=== PATIENT | male | born 1975 | race Caucasian/White ===

== ENCOUNTER 2019-02-16 20:36 | Observation (INO) | payer BC ==
[2019-02-16 21:48] LABS: Absolute Lymphocytes (CBC) 1.1 K/uL (0.7-4.9); Absolute Monocytes 0.8 K/uL (0.1-1.3); Absolute Neutrophil 6.5 K/uL (1.8-8.0); Basophils % 0.2 % (0-1.3); Eosinophils % 0.2 % (0-4.4); Hematocrit 52.1 % (39.6-49.0); Lymphocytes % 13.4 % (15.3-44.8); MPV 7.8 fL (7.6-11.3); Monocytes % 9.9 % (3.3-12.3); RBC Red Blood Cell Count 5.11 M/uL (4.33-5.43)
[2019-02-16] MEDS ORDERED: NA CHLORIDE 0.9% 1,000 ML ONE ×2 (21:52→22:30)
[2019-02-16 22:00] LABS: Protime INR 1.09
[2019-02-16 22:05] LABS: Albumin 4.2 g/dL (3.4-5.0); Bilirubin Direct 0.3 mg/dL (0-0.2); Bilirubin Total 1.8 mg/dL (0.2-1.0); Potassium 3.9 mmol/L (3.5-5.1); Protein, Total 8.4 g/dL (6.4-8.2)
[2019-02-16] MEDS ORDERED: LORazepam 2 MG/ML VIAL ONE (22:08)
[2019-02-16 22:19] LABS: Barbiturates NEGATIVE (NEGATIVE); Benzodiazepines NEGATIVE (NEGATIVE); Cocaine POSITIVE (NEGATIVE); METHAMPHETAM NEGATIVE (NEGATIVE); Methadone NEGATIVE (NEGATIVE); Opiates NEGATIVE (NEGATIVE); Phencyclidine NEGATIVE (NEGATIVE); THC Cannibis POSITIVE (NEGATIVE)
[2019-02-16 22:21] LABS: Urine Blood NEGATIVE (NEG); Urine Glucose NEGATIVE (NEG); Urine Protein 1+ (NEG); Urine Specific Gravity 1.025 (1.005-1.030); Urine pH 5.5 (5.0-7.0)
--- NOTE | 2019-02-16 22:48 | EDPHYS ---
Physician Documentation [facility] Name: Andrew Soriano Age: 44 yrs Sex: Male : 1975 Arrival Date: 02/16/2019 Time: 20:37 Bed 14 Private MD: Joey Bishop ED Physician Enrike Russell HPI: 02/16 21:45 This 44 yrs old Male presents to ER via Ambulatory with complaints of Alcohol rn Withdrawal, hallucinations. 21:45 The patient presents with confusion, disorientation, hallucinations. Onset: The rn symptoms/episode began/occurred yesterday. Possible causes: drug use, alcohol. Current symptoms: In the emergency department the patient's symptoms are unchanged from the initial presentation. The patient has not experienced similar symptoms in the past. Reports heavy drinker, 1/2 to 1 gallon of vodka a day, reports used what he thought was cocaine 1-2 days ago, also stopped drinking yesterday, noticed auditory and visual hallucinations today, no seizure, + shaky, + high blood pressure. . Historical: - Allergies: 20:55 No Known Allergies; ak1 - Home Meds: 20:55 trazodone 50 mg Oral tab [Active]; Keppra 500 mg Oral tab 1.5 tabs [Active]; zolpidem ak1 10 mg Oral tab 1 tab once daily [Active]; losartan 100 mg oral tab 1 tab once daily [Active]; amlodipine 10 mg tab 1 tab once daily [Active]; - PSHx: 20:55 ARM SX; ak1 - Immunization history:: Adult Immunizations unknown. - Social history:: Smoking status: Patient/guardian denies using tobacco, Patient uses alcohol, patient/guardian reports chronic longstanding heavy alcohol consumption. - Ebola Screening: : No symptoms or risks identified at this time. - Family history:: not pertinent. - Hospitalizations: : No recent hospitalization is reported. ROS: 21:45 Constitutional: Negative for fever, chills, and weight loss, Eyes: Negative for injury, rn pain, redness, and discharge, Neck: Negative for injury, pain, and swelling, Cardiovascular: Negative for chest pain, and edema, Respiratory: Negative for shortness of breath, cough, wheezing, and pleuritic chest pain, Abdomen/GI: + nausea MS/Extremity: Negative for injury and deformity, Skin: Negative for injury, rash, and discoloration, Neuro: Negative for headache, weakness, numbness, tingling, and seizure. Exam: 21:45 Constitutional: This is a well developed, well nourished patient who is awake, alert, rn and in no acute distress. Head/Face: Normocephalic, atraumatic. Eyes: Pupils equal round and reactive to light, extra-ocular motions intact. Lids and lashes normal. Conjunctiva and sclera are non-icteric and not injected. Cornea within normal limits. Periorbital areas with no swelling, redness, or edema. ENT: dry MM Cardiovascular: tachycardic, regular, no murmur Respiratory: Lungs have equal breath sounds bilaterally, clear to auscultation. No increased work of breathing, no retractions or nasal flaring. Abdomen/GI: soft, non-tender MS/ Extremity: Pulses equal, no cyanosis. Neurovascular intact. Full, normal range of motion. Equal circumference. Neuro: Awake and alert, GCS 15, oriented to person, place, time, and situation. Cranial nerves II-XII grossly intact. Motor strength 5/5 in all extremities. Sensory grossly intact. + extremity tremors. Vital Signs: 20:52 BP 146 / 102; Pulse 120; Resp 18; Temp 98.5; Pulse Ox 97% on R/A; Weight 108.86 kg (R); ak1 Height 5 ft. 11 in. (180.34 cm) (R); Pain 0/10; 22:07 BP 132 / 101; Pulse 102; Resp 21; Pulse Ox 98% on R/A; tl2 23:36 BP 108 / 76; Pulse 79; Resp 21; Pulse Ox 98% on R/A; tl2 02/17 00:54 BP 151 / 93; Pulse 114; Resp 22; Pulse Ox 97% on R/A; tl2 02/16 20:52 Body Mass Index 33.47 (108.86 kg, 180.34 cm) ak1 MDM: 02/16 21:05 Patient medically screened. rn 22:46 Differential Diagnosis: electrolyte abnormality, volume depletion, delirium tremens. rn Data reviewed: vital signs, nurses notes, lab test result(s), and as a result, I will admit patient. Counseling: I had a detailed discussion with the patient and/or guardian regarding: the historical points, exam findings, and any diagnostic results supporting the discharge/admit diagnosis, lab results, radiology results, the need for further work-up and treatment in the hospital. Admission orders: after a detailed discussion of the patient's condition and case, the admit orders are written by me. Special discussion:. ED course: Pt with slight improvement, still abnormal vitals, admitted to Dr. Mittal.. 02/16 21:13 Order name: CBC with Diff; Complete Time: 21:52 rn 02/16 21:13 Order name: Basic Metabolic Panel; Complete Time: 22:39 rn 02/16 21:13 Order name: ETOH Level; Complete Time: 22:39 02/16 21:13 Order name: Hepatic Function; Complete Time: 22:39 02/16 21:13 Order name: PT-INR; Complete Time: 22:39 02/16 21:13 Order name: Ptt, Activated; Complete Time: 22:39 02/16 21:13 Order name: Urine Drug Screen; Complete Time: 22:39 02/16 22:12 Order name: Urine Dipstick--Ancillary (enter results); Complete Time: 22:39 ar5 02/16 23:09 Order name: CBC with Automated Diff EDLA 02/16 23:09 Order name: CBC with Automated Diff EDLA 02/16 23:09 Order name: Comprehensive Metabolic Panel EDLA 02/16 23:09 Order name: Comprehensive Metabolic Panel [facility] 02/16 21:13 Order name: IV Start; Complete Time: 21:20 02/16 21:13 Order name: EKG; Complete Time: 21:15 02/16 21:13 Order name: EKG - Nurse/Tech; Complete Time: 21:20 rn 02/16 21:13 Order name: Labs collected and sent; Complete Time: 21:20 rn 02/16 21:13 Order name: Urine Dipstick-Ancillary (obtain specimen); Complete Time: 21:20 02/16 23:09 Order name: CONS Pharmacy Consult [facility] 02/16 23:09 Order name: Regular EDMS Administered Medications: 21:51 Drug: NS 0.9% 1000 ml Route: IV; Rate: 1000 ml; Site: right antecubital; tl2 22:33 Follow up: IV Status: Completed infusion; IV Intake: 1000ml tl2 22:05 Not Given (unavailable): Valium 10 mg IVP once tl2 22:06 Drug: Ativan 2 mg Route: IVP; Site: right antecubital; tl2 23:00 Follow up: Response: No adverse reaction; No change in condition tl2 22:33 Drug: NS 0.9% 1000 ml Route: IV; Rate: 1000 ml; Site: right antecubital; tl2 02/17 00:00 Follow up: IV Status: Completed infusion; IV Intake: 1000ml tl2 02/16 23:12 Drug: Ativan 2 mg Route: IVP; Site: right antecubital; tl2 02/17 00:00 Follow up: Response: No adverse reaction tl2 Disposition: 02/16/19 22:48 Hospitalization ordered by Chris Mittal for Inpatient Admission. Preliminary diagnosis is Alcohol dependence with withdrawal delirium. - Bed requested for Telemetry/MedSurg (Inpatient). - Status is Inpatient Admission. tl2 - Condition is Stable. - Problem is new. - Symptoms have improved. UTI on Admission? No Signatures: Dispatcher [employer] EDEnrike Kidd MD MD rn Krenek, Amber, RN RN ak1 Franchesca Nair RN RN cg Jihan Luque RN RN tl2 Corrections: (The following items were deleted from the chart) 02/16 23:50 22:48 Hospitalization Ordered by Chris Mittal MD for Inpatient Admission. Preliminary cg diagnosis is Alcohol dependence with withdrawal delirium. Bed requested for Telemetry/MedSurg (Inpatient). Status is Inpatient Admission. Condition is Stable. Problem is new. Symptoms have improved. UTI on Admission? No. rn 02/17 01:17 02/16 23:50 02/16/2019 22:48 Hospitalization Ordered by Chris Mittal MD for Inpatient tl2 Admission. Preliminary diagnosis is Alcohol dependence with withdrawal delirium. Bed requested for Telemetry/MedSurg (Inpatient). Status is Inpatient Admission. Condition is Stable. Problem is new. Symptoms have improved. UTI on Admission? No. cg
--- NOTE | 2019-02-16 22:48 | ER ---
Nurse's Notes [facility] Name: Andrew Soriano Age: 44 yrs Sex: Male : 1975 Arrival Date: 02/16/2019 Time: 20:37 Bed 14 Private MD: Joey Bishop Diagnosis: Alcohol dependence with withdrawal delirium Presentation: 02/16 20:52 Presenting complaint: Patient states: usually drinks 3 to 4 bottles of vodka weekly, ak1 with recent cocaine use for 3 weeks [employer]OUTE [employer]IE[employer]. pt stated last drink was 2 days [employer]OUTE [employer]. pt c/o visual and audio hallucinations starting at 0500 today. Transition of care: patient was not received from another setting of care. Onset of symptoms was February 16, 2019. Risk Assessment: Do you want to hurt yourself or someone else? Patient reports no desire to harm self or others. Care prior to arrival: None. 20:52 Method Of Arrival: Ambulatory ak1 20:52 Acuity: ELYSSA 2 ak1 22:45 Initial Sepsis Screen: Does the patient meet any 2 criteria? HR > 90 bpm. No. Patient's tl2 initial sepsis screen is negative. Does the patient have a suspected source of infection? No. Patient's initial sepsis screen is negative. Historical: - Allergies: 20:55 No Known Allergies; ak1 - Home Meds: 20:55 trazodone 50 mg Oral tab [Active]; Keppra 500 mg Oral tab 1.5 tabs [Active]; zolpidem ak1 10 mg Oral tab 1 tab once daily [Active]; losartan 100 mg oral tab 1 tab once daily [Active]; amlodipine 10 mg tab 1 tab once daily [Active]; - PSHx: 20:55 ARM SX; ak1 - Immunization history:: Adult Immunizations unknown. - Social history:: Smoking status: Patient/guardian denies using tobacco, Patient uses alcohol, patient/guardian reports chronic longstanding heavy alcohol consumption. - Ebola Screening: : No symptoms or risks identified at this time. - Family history:: not pertinent. - Hospitalizations: : No recent hospitalization is reported. Screenin:44 Abuse screen: Denies threats or abuse. Nutritional screening: No deficits noted. tl2 Tuberculosis screening: No symptoms or risk factors identified. Fall Risk IV access (20 points). Assessment: 21:00 General: Appears in no apparent distress. uncomfortable, Behavior is cooperative, tl2 appropriate for age, anxious. Pain: Denies pain. Neuro: Level of Consciousness is awake, alert, obeys commands, Oriented to person, place, time, situation, Reports auditory and visual hallucinations earlier in the day. No hallucinations reported at this time. Cardiovascular: Denies chest pain. Respiratory: Airway is patent Respiratory effort is even, unlabored, Respiratory pattern is regular, symmetrical. GI: No signs and/or symptoms were reported involving the gastrointestinal system. : No signs and/or symptoms were reported regarding the genitourinary system. Derm: Skin is pink, warm \T\ dry. 22:09 Reassessment: Patient appears in no apparent distress at this time. No changes from tl2 previously documented assessment. Patient and/or family updated on plan of care and expected duration. Pain level reassessed. Patient is alert, oriented x 3, equal unlabored respirations, skin warm/dry/pink. 22:44 Reassessment: pt continues to repeat story. Pt is AOx4 and answers questions tl2 appropriately. 02/17 00:00 Reassessment: Patient appears in no apparent distress at this time. Patient and/or tl2 family updated on plan of care and expected duration. Pain level reassessed. Patient is alert, oriented x 3, equal unlabored respirations, skin warm/dry/pink. 01:14 Reassessment: Patient appears in no apparent distress at this time. Patient and/or tl2 family updated on plan of care and expected duration. Pain level reassessed. Patient is alert, oriented x 3, equal unlabored respirations, skin warm/dry/pink. pt stable and ready for transport to floor. Vital Signs: 02/16 20:52 BP 146 / 102; Pulse 120; Resp 18; Temp 98.5; Pulse Ox 97% on R/A; Weight 108.86 kg (R); ak1 Height 5 ft. 11 in. (180.34 cm) (R); Pain 0/10; 22:07 BP 132 / 101; Pulse 102; Resp 21; Pulse Ox 98% on R/A; tl2 23:36 BP 108 / 76; Pulse 79; Resp 21; Pulse Ox 98% on R/A; tl2 02/17 00:54 BP 151 / 93; Pulse 114; Resp 22; Pulse Ox 97% on R/A; tl2 02/16 20:52 Body Mass Index 33.47 (108.86 kg, 180.34 cm) ak1 ED Course: 02/16 20:37 Patient arrived in ED. am2 20:39 Joey Bishop DO is Private Physician. am2 20:53 Triage completed. ak1 20:55 Arm band placed on Patient placed in an exam room, on a stretcher, on pulse oximetry, ak1 Patient notified of wait time. 21:05 Enrike Russell MD is Attending Physician. rn 21:08 Jihan Luque RN is Primary Nurse. tl2 21:20 Inserted saline lock: 20 gauge in right antecubital area, using aseptic technique. tl2 Blood collected. 22:44 No provider procedures requiring assistance completed. tl2 22:45 Patient has correct armband on for positive identification. Bed in low position. Call tl2 light in reach. Side rails up X 1. Adult w/ patient. 22:47 Chris Mittal MD is Hospitalizing Provider. rn 02/17 01:14 Patient admitted, IV remains in place. tl2 Administered Medications: 02/16 21:51 Drug: NS 0.9% 1000 ml Route: IV; Rate: 1000 ml; Site: right antecubital; tl2 22:33 Follow up: IV Status: Completed infusion; IV Intake: 1000ml tl2 22:05 Not Given (unavailable): Valium 10 mg IVP once tl2 22:06 Drug: Ativan 2 mg Route: IVP; Site: right antecubital; tl2 23:00 Follow up: Response: No adverse reaction; No change in condition tl2 22:33 Drug: NS 0.9% 1000 ml Route: IV; Rate: 1000 ml; Site: right antecubital; tl2 02/17 00:00 Follow up: IV Status: Completed infusion; IV Intake: 1000ml tl2 02/16 23:12 Drug: Ativan 2 mg Route: IVP; Site: right antecubital; tl2 02/17 00:00 Follow up: Response: No adverse reaction tl2 Intake: 02/16 22:33 IV: 1000ml; Total: 1000ml. tl2 02/17 00:00 IV: 1000ml; Total: 2000ml. tl2 Outcome: 02/16 22:48 Decision to Hospitalize by Provider. rn 02/17 01:14 Admitted to Tele accompanied by tech, family with patient, via wheelchair, room 206, tl2 with chart. Condition: stable Discharge instructions given to patient, Instructed on the need for admit. 01:17 Patient left the ED. tl2 Signatures: Enrike Russell MD MD rn Krenek, Amber, RN RN ak1 Jihan Luque RN RN tl2 Isha Becerril
[2019-02-16] MEDS ORDERED: MORPHINE 2 MG/ML SYR IV PRN (22:59)
[2019-02-16] MEDS ORDERED: ACETAMINOPHEN 500 MG TAB PO PRN (22:59)
[2019-02-16] MEDS ORDERED: ONDANSETRON 4 MG/2 ML VIAL IV PRN (22:59)
[2019-02-16] MEDS ORDERED: METOPROLOL TAR 25 MG TAB PO ONE (23:30)
[2019-02-17] MEDS: chlordiazePOXIDE HCl 5 MG CAP PO SCH ×2 (01:38→05:10)
[2019-02-17] MEDS: NA CHLORIDE 0.9% 1,000 ML IV SCH ×4 (01:41→20:42)
[2019-02-17 02:06] VITALS: BMI 33.5
[2019-02-17] MEDS: LORazepam 2 MG/ML VIAL IV PRN ×2 (03:51→08:00)
[2019-02-17] MEDS ORDERED: TRAZODONE 50 MG TABLET PO PRN (04:57)
[2019-02-17 05:40] LABS: Absolute Lymphocytes (CBC) 1.1 K/uL (0.7-4.9); Absolute Monocytes 0.7 K/uL (0.1-1.3); Basophils % 0.6 % (0-1.3); Eosinophils % 0.4 % (0-4.4); Hematocrit 43.1 % (39.6-49.0); Lymphocytes % 16.6 % (15.3-44.8); MPV 8.1 fL (7.6-11.3); Monocytes % 9.7 % (3.3-12.3); RBC Red Blood Cell Count 4.27 M/uL (4.33-5.43)
[2019-02-17 06:00] LABS: Albumin 3.3 g/dL (3.4-5.0); Bilirubin Total 1.5 mg/dL (0.2-1.0); Potassium 3.8 mmol/L (3.5-5.1); Protein, Total 6.5 g/dL (6.4-8.2)
[2019-02-17] MEDS ORDERED: METOPROLOL TAR 25 MG TAB PO SCH (06:00)
[2019-02-17] MEDS ORDERED: ZOLPIDEM TARTRATE 10 MG TABLET PO PRN (07:52)
--- NOTE | 2019-02-17 08:18 | P.HP ---
Certification for Inpatient Patient admitted to: Inpatient With expected LOS: >2 Midnights Patient will require the following post-hospital care: None Practitioner: I am a practitioner with admitting privileges, knowledge of patient current condition, hospital course, and medical plan of care. Services: Services provided to patient in accordance with Admission requirements found in Title 42 Section 412.3 of the Code of Federal Regulations Patient History Date of Service: 02/17/19 Reason for admission: Patient with hallucinations and recent cocaine use History of Present Illness: Patient is a 44-year-old gentleman who came into the hospital having hallucinations. He has stopped drinking over the last 24 hr. The hallucinations started about 9-10 hours after his last drink. He drinks a large amount of vodka. Approximately 1 gal is what we were told in the emergency room; however, he states he drinks about 4 glasses. 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 Shortly after this is when he started having the hallucinations. Hemodynamically, he was tachycardic but currently he is stable. He continues with hallucinations but otherwise he is not combative and he appears very respectful. His brother is at bedside with him assisting with his care. If he is feeling better in the mornings and possible discharge home. Will put him on Librium along with Ativan IV as needed. Also will order banana bag for him. He does have a history of seizures and we restarted his antiepileptics. Going through DTs increases her risk of seizures and so will need to monitor him very closely for this. Alcohol is self decrease his seizure threshold; however, apparently the medications have assisted with providing the seizures from occurring. If unable to take by mouth and will need to give him intravenous medications. Allergies No Known Allergies Allergy (Unverified 02/17/19 01:15) Home Medications: Amlodipine Besylate 1 tab PO DAILY 02/17/19 Lansoprazole 1 tab PO DAILY 02/17/19 Losartan Potassium 1 tab PO DAILY 02/17/19 Trazodone [Desyrel*] 1 tab PO BEDTIME 02/17/19 Zolpidem Tartrate [Ambien*] 1 tab PO BEDTIME PRN 02/17/19 levETIRAcetam [Levetiracetam] 1.5 tab PO DAILY 02/17/19 - Past Medical/Surgical History Has patient received pneumonia vaccine in the past: No Diabetic: No -: HTN -: seizure -unaware what type but loss of consciousness -: arm surgery - Family History Father Family History: Reviewed- Non-Contributory - Social History Smoking Status: Never smoker Alcohol use: Yes CD- Drugs: Yes Caffeine use: No Place of Residence: Home Review of Systems 10-point ROS is otherwise unremarkable Physical Examination - Vital Signs Temperature: 98.0 F Blood Pressure: 118/66 Pulse: 70 Respirations: 20 Pulse Ox (%): 98 - Physical Exam General: Alert, In no apparent distress, Oriented x3 HEENT: Atraumatic, PERRLA, Mucous membr. moist/pink, EOMI, Sclerae nonicteric Neck: Supple, 2+ carotid pulse no bruit, No LAD, Without JVD or thyroid abnormality Respiratory: Clear to auscultation bilaterally, Normal air movement Cardiovascular: Regular rate/rhythm, Normal S1 S2, No murmurs Gastrointestinal: Normal bowel sounds, Soft and benign, Non-distended, No tenderness Musculoskeletal: No clubbing, No swelling, No tenderness Integumentary: No rashes Neurological: Normal gait, Normal speech, Normal strength at 5/5 x4 extr, Normal tone, Sensation intact, Cranial nerves 3-12 intact, Normal affect Lymphatics: No axilla or inguinal lymphadenopathy - Studies Laboratory Data (last 24 hrs) 02/16/19 21:34: PT 12.8 H, INR 1.09, APTT 31.9 02/16/19 21:34: Sodium 138, Potassium 3.9, BUN 20 H, Creatinine 1.61 H, Glucose 101, Total Bilirubin 1.8 H, AST 34, ALT 40, Alkaline Phosphatase 95 02/16/19 21:34: WBC 8.6, Hgb 18.0 H, Hct 52.1 H, Plt Count 241 Assessment & Plan - Problems (Diagnosis) (1) Delirium tremens Current Visit: Yes Status: Acute (2) Cocaine abuse Current Visit: Yes Status: Acute (3) Alcohol abuse Current Visit: Yes Status: Acute (4) Hallucinations Current Visit: Yes Status: Acute (5) History of seizure disorder Current Visit: Yes Status: Acute - Plan Plan: 1. IV hydration 2. Banana bag daily 3. Librium scheduled, and Ativan as needed 4. monitor hemodynamics closely 5. continue antiepileptics 6. seizure precautions 7. counseled regarding refraining from alcohol and cocaine use 8. GI and DVT prophylaxis Discharge Plan: Home Plan to discharge in: Greater than 2 days - Advance Directives Does patient have a Living Will: No Does patient have a Durable POA for Healthcare: No - Code Status/Comfort Care Code Status Assessed: Yes Code Status: Full Code Critical Care: No Time Spent Managing PTS Care (In Minutes): 40
[2019-02-17] MEDS ORDERED: FOLIC ACID 1 MG, MULTIVITAMINS INJ 10 ML, THIAMINE HCL 100 MG in NA CHLORIDE 0.9% 1,000 ML IV SCH (09:00)
[2019-02-17] MEDS ORDERED: LORazepam 2 MG/ML VIAL IV PRN (09:10)
[2019-02-17] MEDS: chlordiazePOXIDE HCl 25 MG CAP PO SCH ×4 (09:42→20:42)
[2019-02-17] MEDS: levETIRAcetam 500 MG TAB PO SCH (09:42)
[2019-02-17] MEDS: LOSARTAN POTASSIUM 50 MG TABLET PO SCH (09:42)
[2019-02-17] MEDS: AMLODIPINE 10 MG TAB PO SCH (09:43)
--- NOTE | 2019-02-17 12:09 | EKG ---
Test Date: 2019-02-16 Test Time: 21:03:56 Data Warehouse Specialist: NORIS MEASUREMENT RESULTS: Intervals: Rate: 92 FL: 150 QRSD: 86 QT: 340 QTc: 420 [place]: P: 46 FL: 150 QRS: 5 T: 73 INTERPRETIVE STATEMENTS: Normal sinus rhythm with sinus arrhythmia Possible Left atrial enlargement Borderline ECG Compared to ECG 10/19/2009 10:52:30 Left ventricular hypertrophy no longer present T-wave abnormality no longer present Electronically Signed On 02-17-19 12:08:10 CDT by Abdon Florence
[2019-02-17] MEDS ORDERED: TRAZODONE 50 MG TABLET PO SCH (21:00)
[2019-02-18] MEDS: chlordiazePOXIDE HCl 25 MG CAP PO SCH ×4 (01:23→09:24)
[2019-02-18 04:44] VITALS: O2SAT 100
[2019-02-18] MEDS: NA CHLORIDE 0.9% 1,000 ML IV SCH (05:48)
[2019-02-18 06:24] LABS: Absolute Lymphocytes (CBC) 1.2 K/uL (0.7-4.9); Absolute Monocytes 0.5 K/uL (0.1-1.3); Basophils % 0.7 % (0-1.3); Eosinophils % 1.5 % (0-4.4); Hematocrit 43.1 % (39.6-49.0); Lymphocytes % 25.8 % (15.3-44.8); MPV 8.2 fL (7.6-11.3); Monocytes % 9.9 % (3.3-12.3); RBC Red Blood Cell Count 4.26 M/uL (4.33-5.43)
[2019-02-18 06:27] LABS: Albumin 3.1 g/dL (3.4-5.0); Bilirubin Total 0.7 mg/dL (0.2-1.0); Potassium 4.6 mmol/L (3.5-5.1); Protein, Total 6.3 g/dL (6.4-8.2)
[2019-02-18 09:18] VITALS: BP 114/70; TEMP 97.2
[2019-02-18] MEDS: AMLODIPINE 10 MG TAB PO SCH (09:25)
[2019-02-18] MEDS: LOSARTAN POTASSIUM 50 MG TABLET PO SCH (09:25)
[2019-02-18] MEDS: levETIRAcetam 500 MG TAB PO SCH (09:27)
--- NOTE | 2019-02-18 10:54 | P.SSS ---
Patient History Date of Service: 02/18/19 Reason for admission: Patient with hallucinations and recent cocaine use History of Present Illness: Patient is a 44-year-old gentleman who came into the hospital having hallucinations. He has stopped drinking over the last 24 hr. The hallucinations started about 9-10 hours after his last drink. He drinks a large amount of vodka. Approximately 1 gal is what we were told in the emergency room; however, he states he drinks about 4 glasses. 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 Shortly after this is when he started having the hallucinations. Hemodynamically, he was tachycardic but currently he is stable. He continues with hallucinations but otherwise he is not combative and he appears very respectful. His brother is at bedside with him assisting with his care. If he is feeling better in the mornings and possible discharge home. Will put him on Librium along with Ativan IV as needed. Also will order banana bag for him. He does have a history of seizures and we restarted his antiepileptics. Going through DTs increases her risk of seizures and so will need to monitor him very closely for this. Alcohol is self decrease his seizure threshold; however, apparently the medications have assisted with providing the seizures from occurring. If unable to take by mouth and will need to give him intravenous medications. Allergies No Known Allergies Allergy (Unverified 02/17/19 01:15) Home Medications: Amlodipine Besylate 1 tab PO DAILY 02/17/19 Lansoprazole 1 tab PO DAILY 02/17/19 Losartan Potassium 1 tab PO DAILY 02/17/19 Trazodone [Desyrel*] 1 tab PO BEDTIME 02/17/19 Zolpidem Tartrate [Ambien*] 1 tab PO BEDTIME PRN 02/17/19 levETIRAcetam [Levetiracetam] 1.5 tab PO DAILY 02/17/19 chlordiazePOXIDE HCl [Librium] 25 mg PO DIRECTED PRN #60 cap 02/18/19 - Past Medical/Surgical History Has patient received pneumonia vaccine in the past: No Diabetic: No -: HTN -: seizure -unaware what type but loss of consciousness -: arm surgery - Social History Smoking Status: Never smoker Alcohol use: Yes CD- Drugs: Yes Caffeine use: No Place of Residence: Home Review of Systems 10-point ROS is otherwise unremarkable Physical Examination - Vital Signs Temperature: 97.2 F Blood Pressure: 114/70 Pulse: 65 Respirations: 18 Pulse Ox (%): 100 - Physical Exam General: Alert, In no apparent distress HEENT: Atraumatic, PERRLA, Mucous membr. moist/pink, EOMI, Sclerae nonicteric Neck: Supple, 2+ carotid pulse no bruit, No LAD, Without JVD or thyroid abnormality Respiratory: Clear to auscultation bilaterally, Normal air movement Cardiovascular: Regular rate/rhythm, Normal S1 S2 Gastrointestinal: Normal bowel sounds, No tenderness Musculoskeletal: No tenderness Integumentary: No rashes Neurological: Normal gait, Normal speech, Normal strength at 5/5 x4 extr, Normal tone, Normal affect Lymphatics: No axilla or inguinal lymphadenopathy - Diagnosis (Problem(s)) (1) Alcohol withdrawal Current Visit: Yes Status: Resolved Qualifiers: Complication of substance-induced condition: with delirium Qualified Code(s ): F10.231 - Alcohol dependence with withdrawal delirium (2) Alcohol abuse Current Visit: Yes Status: Chronic (3) Cocaine abuse Current Visit: Yes Status: Chronic (4) History of seizure disorder Current Visit: Yes Status: Chronic Treatment Summary: Pt was admitted to the hospital for Alcohol WD with hallucination. Was started on CIWA protocol with Librium PO and IV ativan. Did well overall and Dt's resolved. Pt was AAox3 in 24hrs. Was able to ambulated, Tolerate Diet and remained Seizure free. Thus was discharged home understable condition. Educated Extensively on alcohol and Drug Abuse and states he does not wish to go to rehab and will like to do it on his own as he does not believe in Counseling. Pt was educated on fdc effects of Drugs and Alcohol and he demonstrated understanding on the implication this may have on his health. - Disposition Disposition: ROUTINE DISCHARGE Condition: GOOD Diet: Regular Activity: Ad wayne
== END 2019-02-18 10:31 | disposition home or self-care (01) ==
LOC: ER 20:36 → INTOOBSV 23:22 → ERHOLD 23:22 → 2ND 02-17 00:44
PROVIDERS: ADMIT Hospitalist; ATTEND Hospitalist
DX: F10.239 Alcohol dependence with withdrawal, unspecified (principal); F14.10 Cocaine abuse, uncomplicated; R44.3 Hallucinations, unspecified; R56.9 Unspecified convulsions; I10 Essential (primary) hypertension
CPT/HCPCS: 36415; 80048; 80053; 80076; 80307; 80320; 81003; 85025; 85610; 85730; 93005; 96361; 96374; 97161; 97165; 99285; G0378; J2270; J3411; J7030

== ENCOUNTER 2023-11-03 07:58 | Day surgery (SDC) | payer BC ==
[2023-10-06 10:28] LABS: Absolute Lymphocytes (CBC) 1.6 K/uL (0.7-4.9); Hematocrit 49.2 % (39.6-49.0); Lymphocytes % 14.7 % (15.3-44.8); MCV 92.6 fL (80-100); MPV 8.1 fL (7.6-11.3); Platelets 290 thou/uL (152-406); RBC Red Blood Cell Count 5.32 M/uL (4.33-5.43)
[2023-10-06 10:40] LABS: Potassium 4.4 mEq/L (3.5-5.1)
--- NOTE | 2023-10-06 11:13 | RAD REPORT ---
EXAM DESCRIPTION: RAD - Chest Pa And Lat (2 Views) - 10/06/2023 9:52 am CLINICAL HISTORY: pre op for surgery, hypertension COMPARISON: CHEST SINGLE VIEW dated 10/19/2009; CHEST SINGLE VIEW dated 10/19/2009; CHEST PA AND LAT 2 VIEW dated 06/20/2000 TECHNIQUE: PA and lateral views of the chest were obtained. FINDINGS: The lungs are clear. Heart size is normal and central vasculature is within normal limits. No pleural effusion or pneumothorax seen. No acute bony finding noted. IMPRESSION: No acute cardiopulmonary process.
--- NOTE | 2023-10-07 13:45 | EKG ---
Test Date: 2023-10-06 Test Time: 10:45:34 Assembler Faucets: MIYA MEASUREMENT RESULTS: Intervals: Rate: 68 GA: 158 QRSD: 96 QT: 386 QTc: 410 [place]: P: 42 GA: 158 QRS: -3 T: 29 INTERPRETIVE STATEMENTS: Normal sinus rhythm Normal ECG Compared to ECG 02/16/2019 21:03:56 Sinus arrhythmia no longer present Electronically Signed On 10-07-23 13:40:20 OVERSIZE LOAD PILOT ESCORT by Oseas Youngblood
[2023-11-03] MEDS ORDERED: Ringers Lactate 1,000 ML IV ONE (08:14)
[2023-11-03] MEDS ORDERED: propofoL 200 MG/20 ML VIAL IV ONE (08:26)
[2023-11-03] MEDS ORDERED: dexAMETHasone 4 MG/ML VIAL ONE (08:26)
[2023-11-03] MEDS ORDERED: ONDANSETRON 4 MG/2 ML VIAL ONE (08:26)
[2023-11-03] MEDS ORDERED: LIDOCAINE 1% MPF 5 ML VIAL ONE (08:26)
[2023-11-03] MEDS ORDERED: MIDAZOLAM HCL 2 MG/2 ML INJ ONE (08:27)
[2023-11-03] MEDS ORDERED: FENTANYL CITR 100 MCG/2 ML ONE (08:27)
[2023-11-03] MEDS ORDERED: CEFAZOLIN SODIUM 1 GM/VIAL ONE (09:00)
[2023-11-03] MEDS ORDERED: KETOROLAC 30 MG/ML INJ ONE (09:50)
[2023-11-03] MEDS ORDERED: Mastisol Adhesive Liq ONE (09:56)
--- NOTE | 2023-11-03 10:05 | P.BOP ---
Preoperative diagnosis: right neck tender subQ mass Postoperative diagnosis: same Primary procedure: Excisional biopsy of tender sibQ mass 2.5 x2.5 cm, Estimated blood loss: <10cc Specimen: mass Findings: mass down to fascia of muscle but muscle intact Anesthesia: General Complications: None Transferred to: Recovery Room Condition: Good
[2023-11-03 10:34] VITALS: TEMP 97
[2023-11-03 11:36] VITALS: BP 128/87; O2SAT 100
== END 2023-11-03 11:20 | disposition home or self-care (01) ==
LOC: OR 07:58
PROVIDERS: ATTEND Surgery
PROC: 0JB40ZZ Excision of Right Neck Subcutaneous Tissue and Fascia, Open Approach (ICD-10-PCS; principal; 2023-11-03 08:30)
DX: L72.0 Epidermal cyst (principal); I10 Essential (primary) hypertension; G47.33 Obstructive sleep apnea (adult) (pediatric)
CPT/HCPCS: 93005; 85025; 80048; 36415; 88304; 71046; 11423; J2704; J1100; J2001; J2250; J3010; J2405; J7120; J0690; 88305